=== PATIENT | female | born 1990 | race Caucasian/White ===

== ENCOUNTER 2018-02-04 06:51 | Emergency (ER) | payer OTHER, MEDICAID ==
[2018-02-04 08:30] LABS: BASO % 0.6 % (0.0-1.0); EOS # 0.1 10^3/uL (0.0-0.50); EOS % 1.3 % (0.0-3.0); HEMATOCRIT 38.3 % (36.0-47.0); HEMOGLOBIN 12.4 g/dl (12.0-15.5); IMMATURE GRANULOCYTE % 0.3 % (0-3.0); LYMPH # 2.3 10^3/uL (1.5-6.5); LYMPH % 32.7 % (24.0-44.0); MEAN CORPUSCULAR HEMOGLOBIN 28.4 pg (27.0-33.0); MEAN CORPUSCULAR HGB CONC 32.4 g/dl (32.0-36.5); MEAN CORPUSCULAR VOLUME 87.6 fl (80.0-96.0); MONO # 0.5 10^3/uL (0.0-0.8); MONO % 6.7 % (0.0-5.0); NEUTROPHILS # 4.1 10^3/uL (1.8-7.7); NEUTROPHILS % 58.4 % (36.0-66.0); PLATELET COUNT, AUTOMATED 302 10^3/uL (150-450); RED BLOOD COUNT 4.37 10^6/uL (4.00-5.40); RED CELL DISTRIBUTION WIDTH 13.6 % (11.5-14.5)
[2018-02-04 08:36] LABS: APPEARANCE, URINE HAZY (CLEAR); BACTERIA, URINE AUTO NEGATIVE (NEGATIVE); BILIRUBIN, URINE AUTO NEGATIVE (NEGATIVE); BLOOD, URINE BLOOD 1+ (NEGATIVE); COLOR, URINE YELLOW (YELLOW); GLUCOSE, URINE (UA) AUTO NEGATIVE (NEGATIVE); KETONE, URINE AUTO NEGATIVE (NEGATIVE); LEUKOCYTE ESTERASE, URINE AUTO TRACE (NEGATIVE); MUCUS, URINE SMALL (NEGATIVE); NITRITE, URINE AUTO NEGATIVE (NEGATIVE); PROTEIN, URINE AUTO NEGATIVE (NEGATIVE); RBC, URINE AUTO 1 /HPF (0-3); SPECIFIC GRAVITY URINE AUTO 1.019 (1.002-1.035); SQUAMOUS EPITHELIAL CELL UR AU 2 /HPF (0-6); UROBILINOGEN, URINE AUTO 0.2 mg/dL (0.0-2.0); WBC, URINE AUTO 0 /HPF (0-3)
[2018-02-04 08:59] LABS: ALBUMIN 3.4 GM/DL (3.2-5.2); ALBUMIN/GLOBULIN RATIO 0.79 (1.00-1.93); ALKALINE PHOSPHATASE 92 U/L (45-117); ALT/SGPT 31 U/L (12-78); ANION GAP 9 MEQ/L (8-16); AST/SGOT 18 U/L (7-37); BILIRUBIN,DIRECT < 0.1 MG/DL (0.0-0.2); BILIRUBIN,TOTAL 0.1 MG/DL (0.2-1.0); BLOOD UREA NITROGEN 15 MG/DL (7-18); CALCIUM LEVEL 8.9 MG/DL (8.5-10.1); CARBON DIOXIDE LEVEL 26 MEQ/L (21-32); CHLORIDE LEVEL 106 MEQ/L (98-107); CREATININE FOR GFR 0.88 MG/DL (0.55-1.30); GLOMERULAR FILTRATION RATE > 60.0 (>60); GLUCOSE, FASTING 119 MG/DL (70-100); NT-PRO BNP 14 PG/ML (<125); POTASSIUM SERUM 3.8 MEQ/L (3.5-5.1); SODIUM LEVEL 141 MEQ/L (136-145); TOTAL PROTEIN 7.7 GM/DL (6.4-8.2)
== END 2018-02-04 10:50 | disposition home or self-care (01) ==
LOC: M ED 06:51
DX: R60.0 Localized edema (principal); F41.9 Anxiety disorder, unspecified; G47.00 Insomnia, unspecified; F60.3 Borderline personality disorder; Z79.899 Other long term (current) drug therapy; Z88.7 Allergy status to serum and vaccine; Z88.8 Allergy status to other drugs, medicaments and biological substances
CPT/HCPCS: 71046

== ENCOUNTER 2018-02-26 16:38 | Emergency (ER) | payer OTHER, MEDICAID ==
[2018-02-26] MEDS: NS 1,000 ML IV (19:25)
[2018-02-26 19:34] LABS: BASO % 0.4 % (0.0-1.0); EOS # 0.1 10^3/uL (0.0-0.50); HEMATOCRIT 40.5 % (36.0-47.0); HEMOGLOBIN 13.6 g/dl (12.0-15.5); IMMATURE GRANULOCYTE % 0.3 % (0-3.0); LYMPH # 2.5 10^3/uL (1.5-6.5); LYMPH % 26.6 % (24.0-44.0); MEAN CORPUSCULAR HEMOGLOBIN 27.9 pg (27.0-33.0); MEAN CORPUSCULAR HGB CONC 33.6 g/dl (32.0-36.5); MONO # 0.7 10^3/uL (0.0-0.8); MONO % 7.4 % (0.0-5.0); NEUTROPHILS # 6.1 10^3/uL (1.8-7.7); NEUTROPHILS % 64.3 % (36.0-66.0); PLATELET COUNT, AUTOMATED 343 10^3/uL (150-450); RED BLOOD COUNT 4.88 10^6/uL (4.00-5.40); RED CELL DISTRIBUTION WIDTH 13.6 % (11.5-14.5); WHITE BLOOD COUNT 9.5 10^3/uL (4.0-10.0)
[2018-02-26 19:45] LABS: INR 1.04; PROTHROMBIN TIME 13.7 SECONDS (12.4-14.5)
[2018-02-26 19:46] LABS: PARTIAL THROMBOPLASTIN TIME 32.2 SECONDS (26.8-37.9)
[2018-02-26 19:48] LABS: D-DIMER QUANT 597.2 ng/ml (<500)
[2018-02-26 20:04] LABS: ALBUMIN 3.8 GM/DL (3.2-5.2); ALBUMIN/GLOBULIN RATIO 0.86 (1.00-1.93); ALKALINE PHOSPHATASE 103 U/L (45-117); ALT/SGPT 40 U/L (12-78); ANION GAP 10 MEQ/L (8-16); AST/SGOT 20 U/L (7-37); BILIRUBIN,DIRECT 0.1 MG/DL (0.0-0.2); BILIRUBIN,TOTAL 0.3 MG/DL (0.2-1.0); BLOOD UREA NITROGEN 11 MG/DL (7-18); CALCIUM LEVEL 8.8 MG/DL (8.5-10.1); CARBON DIOXIDE LEVEL 27 MEQ/L (21-32); CHLORIDE LEVEL 102 MEQ/L (98-107); CPK CREATINE PHOSPHOKINASE 166 U/L (26-192); CREATININE FOR GFR 0.91 MG/DL (0.55-1.30); FREE T4 0.92 NG/DL (0.76-1.46); GLOMERULAR FILTRATION RATE > 60.0 (>60); GLUCOSE, FASTING 86 MG/DL (70-100); POTASSIUM SERUM 4.4 MEQ/L (3.5-5.1); SODIUM LEVEL 139 MEQ/L (136-145); TOTAL PROTEIN 8.2 GM/DL (6.4-8.2); TROPONIN I < 0.02 NG/ML (< 0.10)
[2018-02-26 20:09] LABS: CK-MB VALUE MASS 4.8 NG/ML (<3.6); MB/CK RELATIVE INDEX 2.89 (< OR =4); NT-PRO BNP 76 PG/ML (<125)
[2018-02-26 20:31] LABS: CONTROL LINE HCG INT CTR LINE PRESENT; HCG, SERUM QUALITATIVE NEGATIVE (NEGATIVE)
[2018-02-26] MEDS ORDERED: ISOVUE-370 76% 100ML VIAL (Q9967) As Ordered (20:31)
== END 2018-02-26 22:05 | disposition home or self-care (01) ==
LOC: M ED 16:38
DX: R07.89 Other chest pain (principal); R60.0 Localized edema; R06.02 Shortness of breath; R56.9 Unspecified convulsions; Z79.899 Other long term (current) drug therapy; Z88.6 Allergy status to analgesic agent; Z88.7 Allergy status to serum and vaccine
CPT/HCPCS: Q9967

== ENCOUNTER → 2018-05-21 | Outpatient (CLI) | payer OTHER ==
[2018-05-21 13:20] LABS: HEMATOCRIT 34.8 % (36.0-47.0); HEMOGLOBIN 11.3 g/dl (12.0-15.5); MEAN CORPUSCULAR HEMOGLOBIN 28.2 pg (27.0-33.0); MEAN CORPUSCULAR HGB CONC 32.5 g/dl (32.0-36.5); MEAN CORPUSCULAR VOLUME 86.8 fl (80.0-96.0); PLATELET COUNT, AUTOMATED 310 10^3/uL (150-450); RED BLOOD COUNT 4.01 10^6/uL (4.00-5.40); RED CELL DISTRIBUTION WIDTH 14.1 % (11.5-14.5); WHITE BLOOD COUNT 6.7 10^3/uL (4.0-10.0)
[2018-05-21 13:51] LABS: PROLACTIN 12.4 NG/ML
[2018-05-21 15:27] LABS: ESTIMATED AVERAGE GLUCOSE 88 MG/DL (60-110); FREE T4 0.88 NG/DL (0.76-1.46); HEMOGLOBIN A1c 4.7 %
[2018-05-27 00:07] LABS: DEHYDROEPIANDROSTERONE SULFATE 187.2 ug/dL (84.8-378.0); INSULIN FREE 29 uU/mL (.); INSULIN TOTAL2 29 uU/mL (.); TESTOSTERONE FREE (DIRECT) 2.6 pg/mL (0.0-4.2)
== END ==
LOC: M SMT 08:28
DX: N92.6 Irregular menstruation, unspecified (principal)
CPT/HCPCS: 83525

== ENCOUNTER → 2018-05-28 | Outpatient (CLI) | payer OTHER | LOC: M SMT 13:39 | DX: N92.0 Excessive and frequent menstruation with regular cycle (principal) | CPT/HCPCS: 76830 ==

== ENCOUNTER 2018-07-22 17:17 | Emergency (ER) | payer OTHER | END 2018-07-22 19:01 | disposition home or self-care (01) | LOC: M ED 17:17 | DX: L02.412 Cutaneous abscess of left axilla (principal); R56.9 Unspecified convulsions; Z88.6 Allergy status to analgesic agent; Z88.7 Allergy status to serum and vaccine | CPT/HCPCS: 87186 ==

== ENCOUNTER 2018-09-12 17:36 | Emergency (ER) | payer OTHER ==
[~2018-09-12] VITALS: Ht 170.2 cm; Wt 132.0 kg
[~2018-09-12 17:36] MED LIST: ARIP1TAB PO; CITA20TA4; CLEO300C2 PO; HYDR25TAB PO; PROBCAP4 PO
[2018-09-12] MEDS ORDERED: ACETAMINOPHEN 325 MG TAB PO ONE (18:15)
--- NOTE | 2018-09-12 18:35 | REP ---
Clinical: Cough and fever . Comparison: 02/04/2018 . Technique: PA and lateral. Findings: The mediastinum and cardiac silhouette are normal. The lung lawson are clear and without acute consolidation, effusion, or pneumothorax. The skeletal structures are intact and normal. Impression: 1. No acute cardiopulmonary process. Electronically Signed by Luis Felipe Mantilla MD 09/12/2018 06:26 P
[2018-09-12 18:40] LABS: BASO % 0.5 % (0.0-1.0); EOS % 0.2 % (0.0-3.0); HEMATOCRIT 38.2 % (36.0-47.0); HEMOGLOBIN 12.3 g/dl (12.0-15.5); LYMPH # 1.3 10^3/uL (1.5-6.5); LYMPH % 19.8 % (24.0-44.0); MEAN CORPUSCULAR HEMOGLOBIN 25.3 pg (27.0-33.0); MEAN CORPUSCULAR HGB CONC 32.2 g/dl (32.0-36.5); MEAN CORPUSCULAR VOLUME 78.6 fl (80.0-96.0); MONO # 0.6 10^3/uL (0.0-0.8); MONO % 9.2 % (0.0-5.0); NEUTROPHILS # 4.6 10^3/uL (1.8-7.7); NEUTROPHILS % 70.1 % (36.0-66.0); PLATELET COUNT, AUTOMATED 347 10^3/uL (150-450); RED BLOOD COUNT 4.86 10^6/uL (4.00-5.40); WHITE BLOOD COUNT 6.5 10^3/uL (4.0-10.0)
[2018-09-12 18:52] LABS: INR 1.04; PARTIAL THROMBOPLASTIN TIME 29.9 SECONDS (25.4-37.6); PROTHROMBIN TIME 13.7 SECONDS (12.1-14.4)
[2018-09-12 18:55] LABS: D-DIMER QUANT 784.33 ng/ml (<500)
[2018-09-12] MEDS ORDERED: NS 500 ML IV ONE (19:00)
[2018-09-12 19:05] LABS: ALBUMIN 3.6 GM/DL (3.2-5.2); ALT/SGPT 38 U/L (12-78); BILIRUBIN,DIRECT 0.1 MG/DL (0.0-0.2); BILIRUBIN,TOTAL 0.4 MG/DL (0.2-1.0); BLOOD UREA NITROGEN 10 MG/DL (7-18); CALCIUM LEVEL 8.8 MG/DL (8.5-10.1); CARBON DIOXIDE LEVEL 27 MEQ/L (21-32); CHLORIDE LEVEL 105 MEQ/L (98-107); CREATININE FOR GFR 0.93 MG/DL (0.55-1.30); GLOMERULAR FILTRATION RATE > 60.0 (>60); GLUCOSE, FASTING 96 MG/DL (70-100); POTASSIUM SERUM 4.1 MEQ/L (3.5-5.1); SODIUM LEVEL 139 MEQ/L (136-145); TOTAL PROTEIN 7.5 GM/DL (6.4-8.2)
[2018-09-12 19:13] LABS: INFLUENZA A AMPLIFICATION NEGATIVE (NEGATIVE); INFLUENZA B AMPLIFICATION NEGATIVE (NEGATIVE)
[2018-09-12] MEDS ORDERED: ISOVUE-370 76% 100ML VIAL (Q9967) As Ordered ONE (19:16)
--- NOTE | 2018-09-12 19:46 | REP ---
Clinical: Acute chest pain with elevated D-dimer levels. Comparison: 02/26/2018 . Technique: Axial contrast enhanced images from the thoracic inlet to the upper abdomen using 100 ml Isovue 370 intravenous contrast material with coronal and sagittal re-formations. Findings: Satisfactory enhancement of the pulmonary vasculature is achieved but evaluation is somewhat limited due to considerable respiratory motion artifact. No obvious filling defects are identified to suggest pulmonary embolus. Thoracic aorta is normal caliber without aneurysm or dissection. Heart and pericardium are normal. Bilateral lung lawson are well aerated and clear without acute pulmonary parenchymal consolidation or atelectasis. No nodule or mass lesion. No pleural effusion/reaction. No pneumothorax. No adenopathy. Limited upper abdomen demonstrates hepatosteatosis. Impression: No evidence for pulmonary embolus. No acute pleuroparenchymal or mediastinal process. Electronically Signed by Luis Felipe Mantilla MD 09/12/2018 07:37 P
[2018-09-12 19:55] VITALS: BP 125/64
[2018-09-12] MEDS ORDERED: PROAAER10 INH (19:55)
== END 2018-09-12 20:14 | disposition home or self-care (01) ==
LOC: M ED 17:36
DX: J20.9 Acute bronchitis, unspecified (principal); R04.2 Hemoptysis; R56.9 Unspecified convulsions; F60.9 Personality disorder, unspecified; F43.10 Post-traumatic stress disorder, unspecified
CPT/HCPCS: 71046; 71275; 80048; 80076; 85025; 85379; 85610; 85730; 87502; 99284; Q9967

== ENCOUNTER → 2019-04-09 | Outpatient (CLI) | payer OTHER ==
[~2019-04-09] MED LIST changes: +BACT800T5 PO; -CITA20TA4; +CITA20TA6; +METF750T41 PO; +NEOM28.3 TOP; +PROAAER10 INH; +SILV50CR EXT
--- NOTE | 2019-04-09 12:30 | REP ---
Pelvic ultrasound including transabdominal, endovaginal and Doppler ultrasound assessment: Comparison is 05/28/2018. The bladder is adequately distended. The uterus is anteverted and upper normal size measuring 9.2 x 4.8 x 5.3 cm. The myometrium is unremarkable. The endometrium is normal thickness measuring 11 mm. The Cervix Nabothian cysts are incidentally identified. The right ovary is normal size measuring 2.9 x 1.9 x 1.9 cm. The left ovary is normal size measuring 2.7 x 1.7 x 2.1 cm. There are no dominant ovarian masses or cysts. There is vascular flow in both ovaries. The Doppler resistive index of the parenchymal arteries on the right is 0.59 and the left 0.58. There is no free fluid in the pelvis. Impression: Essentially negative pelvic ultrasound. Electronically Signed by Man Loyola MD 04/09/2019 12:21 P
== END ==
LOC: M RAD 10:51
PROVIDERS: ATTEND Advanced Practice Midwife
DX: N92.0 Excessive and frequent menstruation with regular cycle (principal)

== ENCOUNTER 2019-04-19 21:26 | Inpatient (IN) | payer OTHER ==
[~2019-04-19] VITALS: Ht 170.2 cm; Wt 133.8 kg
[2019-04-19] MEDS: HumaLOG INSULIN (NovoLOG) PER UNIT SC SCH (02:55)
[~2019-04-19 21:26] MED LIST changes: -BACT800T5 PO; -METF750T41 PO; -NEOM28.3 TOP; -SILV50CR EXT
[2019-04-19] MEDS ORDERED: MOM 30ML SUSPENSION UDC PO PRN (23:15)
[2019-04-19] MEDS ORDERED: MAALOX 30 ML SUSP *UDC PO PRN (23:15)
[2019-04-20] VITALS: BP 144/82
[2019-04-20] MEDS: ACETAMINOPHEN 500 MG TAB PO PRN ×2 (00:16→12:39)
[2019-04-20] MEDS ORDERED: SILV50CR EXT (00:59)
[2019-04-20] MEDS ORDERED: METF750T41 PO (00:59)
[2019-04-20] MEDS ORDERED: NEOM28.3 TOP (00:59)
[2019-04-20] MEDS ORDERED: BACT800T5 PO (00:59)
--- NOTE | 2019-04-20 01:28 | REPVR ---
EXAM: US Left Non-Vascular Joint or Other Extremity Structure, Limited Upper Extremity EXAM DATE/TIME: 04/20/2019 12:37 AM CLINICAL HISTORY: 28 years old, female; Condition or disease; Abscess; Arm, upper; Left; Additional info: Left axilla rule out abscess TECHNIQUE: Imaging protocol: Left US Non-Vascular Joint or Other Extremity Structure. Limited exam of the upper extremity. COMPARISON: No relevant prior studies available. FINDINGS: Soft tissues: Superficial subcutaneous fluid collection in the left axilla measuring 38 x 11 x 3 mm which may reflects trauma or possibly abscess. There is no internal blood flow although the area around this collection is not particularly hyperemic. IMPRESSION: Superficial fluid collection just beneath the skin in the left axilla measuring 38 x 11 x 3 mm which may reflect seroma or possibly abscess. Electronically signed by: Efrain Diego On 04/20/2019 01:27:38 AM
[2019-04-20] MEDS ORDERED: KETOROLAC 30 MG/ML VIAL (J1885) IV ONE ×2 (02:15→16:45)
[2019-04-20] MEDS ORDERED: DEXTROSE 50% 50 ML SYRINGE IV PRN (02:15)
[2019-04-20] MEDS ORDERED: GLUCAGON FOR INJ 1 MG VIAL (J1610) SC PRN (02:15)
[2019-04-20] MEDS ORDERED: GLUCOSE 4 GM CHEW TABLET PO PRN (02:15)
--- NOTE | 2019-04-20 02:41 | HPEPDOC ---
General Date of Admission Apr 19, 2019 at 23:55 Date of Service: Apr 19, 2019 Chief Complaint The patient is a 28-year-old female admitted with a reason for visit of Axilla Infection. Source: Patient, RN/MD, Old records Exam Limitations: No limitations Severity: Moderate History of Present Illness 28 year old female with PMH of epilepsy, PCOS, Morbid obesity, acid reflux. MAJOR DEPRESSIVE DISORDER , COMPLEX PTSD, PSEUDO SEIZURES, HYPERTENSION, ON CBD OIL transferred from [place] as there was no surgical coverage. Patient has been having intermittent axillary painful swellings for the past 8 months. It would come out swelling up rupture drain she would get a course of antibiotics it would get suppressed but never go away completely this time it came up about 1 week ago she was prescribed bactrim which she had finished one course and was started on a second course however has not been improving . It had opened up again today and started draining s she went to the ED and was transferred here for surgical evaluation. Patient complains of dull throbbing pain about 8/10 in intensity in the left axilla extending down and to the back with swelling and intermittent drainage from 2 openings, Home Medications Scheduled Metformin HCl (Metformin HCl ER) 750 Mg Tab.er.24h, 750 MG PO BID, (Reported) Neomycin/Bacitracin/Polymyxinb (Neosporin Ointment) 28.3 Gm Oint...g., 1 DOSE TOP TID, (Reported) LEFT ARMPIT Silver Sulfadiazine (Ssd) 50 Gm Cream..g., 1 DOSE EXT TID, (Reported) LEFT ARMPIT Sulfamethoxazole/Trimethoprim (Bactrim Ds Tablet) 1 Each Tablet, 1 TAB PO BID, (Reported) Allergies Coded Allergies: Pertussis Vaccines (Verified Allergy, Severe, throat swelling, 04/19/19) ibuprofen (Verified Adverse Reaction, Mild, vomiting, 04/19/19) Past Medical History Medical History epilepsy, PCOS, Morbid obesity, acid reflux. MAJOR DEPRESSIVE DISORDER COMPLEX PTSD PSEUDO SEIZURES HYPERTENSION ON CBD OIL Surgical History lymph node biopsy Family History Significant Family History: Cancer (maternal aunt brain cnacer, great grandmother breast cancer), Hypertension (mother, grandmother), Other (stroke in grandmother) Social History * Smoker: non-smoker Alcohol: Denies Drugs: marijuana A-FIB/CHADSVASC A-FIB History Current/History of A-Fib/PAF?: No Review of Systems Constitutional: Denies: Chills, Fever, Night Sweats Eyes: Denies: Pain, Vision change ENT: Denies: Head Aches, Ear Pain, Dysphagia Skin: Reports: Lesions (left axilla abscess), Breakdown (drainage from sandeep deep seated abscess) Pulmonary: Denies: Dyspnea, Cough Cardiovascular: Denies: Chest Pain, Palpitations, Orthopnea, Paroxysmal Noc. Dyspnea, Lt Headedness Gastrointestinal: Reports: Nausea; Denies: Vomiting, Abdominal Pain, Diarrhea, Constipation, Melena, Hematochezia, Other Symptoms Genitourinary: Denies: Dysuria, Frequency, Incontinence, Retention Hematologic: Denies: Bruising, Bleeding Excessively Musculoskeletal: Denies: Neck Pain, Back Pain, Joint Pain, Muscle Pain, Spasms Neurological: Denies: Weakness, Numbness, Change in speech, Confusion Physical Examination General Exam: Positive: Alert, Cooperative, No Acute Distress Eye Exam: Positive: PERRLA, Conjunctiva & lids normal, EOMI; Negative: Sclera icteric ENT Exam: Positive: Atraumatic, Mucous membr. moist/pink, Pharynx Normal Neck Exam: Positive: Supple; Negative: JVD, thyromegaly Chest Exam: Positive: Clear to auscultation, Normal air movement Heart Exam: Positive: Rate Normal, Regular Rhythm, Normal S1, Normal S2; Negative: Murmurs, Rubs Abdomen Exam: Positive: Normal bowel sounds, Soft; Negative: Tenderness, Hepatospenomegaly Extremity Exam: Positive: Normal pulses; Negative: Clubbing, Cyanosis, Edema Skin Exam: Positive: Lesion (in eh left axilla 2 distint open areas which was draining before), Other skin issue (tender in the axilla with deep seated swelling ) Neuro Exam: Positive: Normal Gait, Normal Speech, Cranial Nerves 3-12 NL, Re flexes 2+ Psych Exam: Positive: Memory Intact, Oriented x 3 Vital Signs Vital Signs Date Time Temp Pulse Resp B/P (MAP) Pulse Ox O2 Delivery O2 Flow Rate FiO2 04/20/19 00:00 97.8 78 18 144/82 (450) 97 Assessment/Plan 28 year old female with PMH of epilepsy, PCOS, Morbid obesity, acid reflux. MAJOR DEPRESSIVE DISORDER , COMPLEX PTSD, PSEUDO SEIZURES, HYPERTENSION, ON CBD OIL transferred from [place] as there was no surgical coverage. Patient has been having intermittent axillary painful swellings for the past 8 months. It would come out swelling up rupture drain she would get a course of antibiotics it would get suppressed but never go away completely this time it came up about 1 week ago she was prescribed bactrim which she had finished one course and was started on a second course however has not been improving . It had opened up again today and started draining s she went to the ED and was transferred here for surgical evaluation. Epilepsy Vs psuedo seizures takes CBD oil last attack more than year ago. PCOS on metformin will hold here Morbid obesity, acid reflux PPI MAJOR DEPRESSIVE DISORDER/ PTSD no issues now HYPERTENSION not on any meds\ will monitor Plan / VTE VTE Prophylaxis Ordered?: Yes OLGA LIDIA HAWKINS MD Apr 20, 2019 02:41
[2019-04-20] MEDS ORDERED: VANCOMYCIN HCL 1,000 MG, VIAL MATE ADAPTER 1 EACH in D5W 250 ML IV ONE ×2 (03:00→04:30)
[2019-04-20 03:14] LABS: BASO % 0.4 % (0.0-1.0); EOS # 0.1 10^3/uL (0.0-0.50); EOS % 0.8 % (0.0-3.0); HEMATOCRIT 35.3 % (36.0-47.0); HEMOGLOBIN 11.6 g/dl (12.0-15.5); LYMPH # 3.3 10^3/uL (1.5-6.5); LYMPH % 41.7 % (24.0-44.0); MEAN CORPUSCULAR HEMOGLOBIN 27.2 pg (27.0-33.0); MEAN CORPUSCULAR HGB CONC 32.9 g/dl (32.0-36.5); MEAN CORPUSCULAR VOLUME 82.9 fl (80.0-96.0); MONO # 0.5 10^3/uL (0.0-0.8); MONO % 6.3 % (0.0-5.0); NEUTROPHILS # 4.1 10^3/uL (1.8-7.7); NEUTROPHILS % 50.7 % (36.0-66.0); PLATELET COUNT, AUTOMATED 275 10^3/uL (150-450); RED BLOOD COUNT 4.26 10^6/uL (4.00-5.40)
[2019-04-20 03:35] LABS: BLOOD UREA NITROGEN 11 MG/DL (7-18); CALCIUM LEVEL 8.3 MG/DL (8.5-10.1); CARBON DIOXIDE LEVEL 29 MEQ/L (21-32); CHLORIDE LEVEL 108 MEQ/L (98-107); CREATININE FOR GFR 0.96 MG/DL (0.55-1.30); GLOMERULAR FILTRATION RATE > 60.0 (>60); GLUCOSE, FASTING 116 MG/DL (70-100); POTASSIUM SERUM 4.1 MEQ/L (3.5-5.1); SODIUM LEVEL 141 MEQ/L (136-145)
--- NOTE | 2019-04-20 04:51 | PHACANCOPD ---
PHARMACY VANCOMYCIN DOSING Pt Demographics Demographics Patient Age:28 , Weight:133.800 , Gender: female Adjusted Body Weight Date: 04/20/19, Adjusted Body Weight: [90.5] Kg Vancomycin Vancomycin indication: PERSISTANT AXILLA INFECTION Vancomycin Target Ranges: 15-20 mcg/ml Vancomycin Load Y/N: Yes Load Dose Date Time Vancomycin Load Dose: 2GM Date: 04/20 Time: 3-5AM Vancomycin Dose Date: 04/20/19. Current Vancomycin Dose: [1 GM Q8H] Intermittent Dosing?: No Labs Labs Laboratory Tests 04/20/19 03:08 Red Blood Count 4.26, Mean Corpuscular Volume 82.9, Mean Corpuscular Hemoglobin 27.2, Mean Corpuscular Hemoglobin Concent 32.9, Red Cell Distribution Width 15.1 H, Neutrophils (%) (Auto) 50.7, Lymphocytes (%) (Auto) 41.7, Monocytes (%) (Au to) 6.3 H, Eosinophils (%) (Auto) 0.8, Basophils (%) (Auto) 0.4, Neutrophils # (Auto) 4.1, Lymphocytes # (Auto) 3.3, Monocytes # (Auto) 0.5, Eosinophils # (Auto) 0.1, Basophils # (Auto) 0.0, Calcium Level 8.3 L Micro Microbiology 04/20/19 Blood Culture, Received Pending 04/20/19 Blood Culture, Received Pending Creatinine Clearance Date:04/20/19. Creatinine Clearance: [>100]CALCULATED. Assessment and Plan Maintaining Current Dose?: Yes Reason for dose change: No Dose Change Pharmacist Note Pharmacist Note Date: 04/20/19. Pharmacist note:28 YOF TRANSFERRED [facility]OTHER FACILITY W/RECURRENT AXILLA INFECTION,Vanco trough goal=15-30, RL=890.8kg(ABW=90.5 kg),SCR=0.96,CRCL>100 calculated ,ALLERGIES:Pertussis vaccine.Vancomycin 2 gram load administered ,then will begin regimen of 1 gram IV Q8H @1100. First trough is acheduled for 04/21@0200(prior to the 4th dose. Will continue to follow labs and adjust Vanco dose as needed IVONNE AGUILAR PHARMACY Apr 20, 2019 04:51
[2019-04-20] MEDS: PANTOPRAZOLE 40MG TAB (PROTONIX) PO SCH (05:24)
[2019-04-20 06:00] VITALS: BP 113/62
[2019-04-20] MEDS ORDERED: KETOROLAC 30 MG/ML VIAL (J1885) IV PRN (08:00)
[2019-04-20] MEDS: DOCUSATE SODIUM 100 MG CAP PO SCH ×2 (08:29→20:18)
[2019-04-20] MEDS: HumaLOG INSULIN (NovoLOG) PER UNIT SC SCH ×4 (08:29→20:48)
[2019-04-20] MEDS: VANCOMYCIN HCL 1,000 MG, VIAL MATE ADAPTER 1 EACH in D5W 250 ML IV SCH ×2 (11:14→18:50)
[2019-04-20 14:00] VITALS: BP 127/80
--- NOTE | 2019-04-20 15:16 | IPNPDOC ---
Date Seen The patient was seen on 04/20/19. Progress Note SUBJECTIVE: Patient is a 28-year-old female with a past medical history of PCOS, epilepsy, pseudoseizures, obesity, hypertension, complex PTSD, and acid reflux presented to the ER for an infection in her left axilla. Ms. Robertson was transferred from [place] as a result of no surgical coverage. She has been having intermittent painful axillary swellings for the past 8 months. Her axilla began swelling, ruptured, and began draining. She has gotten antibiotics on and off over the last 8 months that would suppress but not completely heal the draining infection in her axilla. She was prescribed 2 courses of Bactrim 1 week ago with no improvement. The infection ruptured yesterday and started draining which led her to present to the emergency room. Ms. Robertson states that the pain is dull, throbbing, and rates it as an 8/10. The pain radiates inferoposteriorly to the left axilla. Her infection had two draining openings in the ER. Patient was examined at bedside. She is in a pleasant mood and is cooperative. She expresses her frustration at having this abscess for the last 8 months and would like this issue to be resolved by the end of her hospital stay. She states that her abscess has not been draining since her admission. In the last week she has noticed yellow pus and blood draining from the two openings. The drainage is noted as having a pungent smell. She admits to having night sweats recently but denies having fevers or chills. OBJECTIVE PHYSICAL EXAMINATION: VITAL SIGNS: Please see below. GENERAL: 28-year-old female lying in bed, she is in no acute distress. She is alert to her surroundings and cooperative HEENT: NC AT, neck is supple CARDIOVASCULAR: regular rate and rhythm, normal S1S2. No murmurs, rubs, or gallops appreciated RESPIRATORY: Clear to auscultation bilaterally. No wheezes, rhonchi, or rales noted. ABDOMINAL: soft, nontender to palpation, normal bowel sounds EXTREMITIES: left axilla abscess noted, two drainage openings noted. left axilla tender to palpation. No cyanosis or rashes noted. NEUROLOGICAL: no focal deficits noted PSYCHOLOGICAL: normal affect LABORATORY DATA, IMAGING STUDIES, MICROBIOLOGY: Please see below. 1. Extremity US 04/20/19: Superficial fluid collection just beneath the skin in the left axilla measuring 38 x 11 x 3 mm which may reflect seroma or possibly abscess. 2. Abscess drainage US 04/20/19: DVT prophylaxis ordered?: Yes, SCDs and TEDs ASSESSMENT AND PLAN: This is a 28-year-old white female with a past medical history of PCOS, epilepsy, pseudoseizures, obesity, hypertension, complex PTSD, and acid reflux PROBLEMS: 1. Hidradenitis Suppurativa -Extremity US showed superficial fluid collection just beneath skin in left axilla 04/20/19 in the am -c/w acetaminophen and Toradol prn pain -c/w vancomycin, will discharge with doxycycline -patient had ultrasound guided abscess drainage 04/20/19 in the pm -blood cultures pending 2. Epilepsy 3. PCOS -c/w sliding scale insulin 4. Obesity 5. Acid reflux -c/w pantoprazole 6. Major depressive disorder DISPOSITION: Patient is stable and prognosis is good. She had US guided abscess drainage this afternoon; she is encouraged to keep left axilla clean and dry. We appreciate Interventional Radiology for their help. Hoping to discharge patient in the next 24-48 hours. I saw and evaluated the patient. I agree with the findings and plan of care as documented in the above note VS, I&O, 24H, Fishbone Vital Signs/I&O Vital Signs Date Time Temp Pulse Resp B/P (MAP) Pulse Ox O2 Delivery O2 Flow Rate FiO2 04/20/19 14:00 98.5 81 18 127/80 (96) 98 I&O- Last 24 Hours up to 6 AM 04/20/19 06:00 Intake Total 0 ml Output Total 300 ml Balance -300 ml Laboratory Data 24H LABS Laboratory Tests 2 04/20/19 02:55: Bedside Glucose (Misc Panel) 96 04/20/19 03:08: Immature Granulocyte % (Auto) 0.1, White Blood Count 8.0, Red Blood Count 4.26, Hemoglobin 11.6L, Hematocrit 35.3L, Mean Corpuscular Volume 82.9, Mean Corpuscular Hemoglobin 27.2, Mean Corpuscular Hemoglobin Concent 32.9, Red Cell Distribution Width 15.1H, Platelet Count 275, Neutrophils (%) (Auto) 50.7, Lymp hocytes (%) (Auto) 41.7, Monocytes (%) (Auto) 6.3H, Eosinophils (%) (Auto) 0.8, Basophils (%) (Auto) 0.4, Neutrophils # (Auto) 4.1, Lymphocytes # (Auto) 3.3, Monocytes # (Auto) 0.5, Eosinophils # (Auto) 0.1, Basophils # (Auto) 0.0, Nucleated Red Blood Cells % (auto) 0.0, Anion Gap 4L, Glomerular Filtration Rate > 60.0, Blood Urea Nitrogen 11, Creatinine 0.96, Sodium Level 141, Potassium Level 4.1, Chloride Level 108H, Carbon Dioxide Level 29, Calcium Level 8.3L 04/20/19 04:59: Bedside Glucose (Misc Panel) 145H 04/20/19 11:21: Bedside Glucose (Misc Panel) 122H CBC/BMP Laboratory Tests 04/20/19 03:08 Red Blood Count 4.26, Mean Corpuscular Volume 82.9, Mean Corpuscular Hemoglobin 27.2, Mean Corpuscular Hemoglobin Concent 32.9, Red Cell Distribution Width 15.1 H, Neutrophils (%) (Auto) 50.7, Lymphocytes (%) (Auto) 41.7, Monocytes (%) (Auto) 6.3 H, Eosinophils (%) (Auto) 0.8, Basophils (%) (Auto) 0.4, Neutrophils # (Auto) 4.1, Lymphocytes # (Auto) 3.3, Monocytes # (Auto) 0.5, Eosinophils # (Auto) 0.1, Basophils # (Auto) 0.0, Calcium Level 8.3 L Microbiology Microbiology 04/20/19 Blood Culture, Received Pending 04/20/19 Blood Culture, Received Pending MARITZA KESSLER [facility] Apr 20, 2019 15:16 PRASANNA WOLFE MD Apr 20, 2019 17:03
[2019-04-20 22:00] VITALS: BP 123/73
[2019-04-20] MEDS: KETOROLAC 30 MG/ML VIAL (J1885) IV PRN (23:01)
[2019-04-21] MEDS: VANCOMYCIN HCL 1,000 MG, VIAL MATE ADAPTER 1 EACH in D5W 250 ML IV SCH (03:16)
--- NOTE | 2019-04-21 03:31 | PHACANCOPD ---
PHARMACY VANCOMYCIN DOSING Pt Demographics Demographics Patient Age:28 , Weight:133.800 , Gender: female Adjusted Body Weight Date: 04/20/19, Adjusted Body Weight: [90.5] Kg Vancomycin Vancomycin indication: PERSISTANT AXILLA INFECTION Vancomycin Target Ranges: 15-20 mcg/ml Vancomycin Load Y/N: Yes Load Dose Date Time Vancomycin Load Dose: 2GM Date: 04/20 Time: 3-5AM Vancomycin Dose Date: 04/20/19. Current Vancomycin Dose: [1250MG Q8H] Intermittent Dosing?: No Labs Micro Microbiology 04/20/19 Blood Culture - Preliminary, Resulted No growth after 24 hours . All specim... 04/20/19 Blood Culture - Preliminary, Resulted No growth after 24 hours . All specim... Creatinine Clearance Date:04/20/19. Creatinine Clearance: [>100]CALCULATED. Assessment and Plan Maintaining Current Dose?: No Reason for dose change: Trough too low Pharmacist Note Pharmacist Note Date: 04/21/19. Pharmacist note:Vancomycin trough drawn this morning@1:47 reported as 12.5(goal=15-20). Will adjust Vancomycin dose to 1250mg IV [id number] to begin this morning with the 10am dose.-Will continue to monitor labs and adjust Vancomycin dose as necessary Date: 04/20/19. Pharmacist note:28 YOF TRANSFERRED [facility]AC[facility] W/RECURRENT AXILLA INFECTION,Vanco trough goal=15-30, HK=502.8kg(ABW=90.5 kg),SCR=0.96,CRCL>100 calculated ,ALLERGIES:Pertussis vaccine.Vancomycin 2 gram load administered ,then will begin regimen of 1 gram IV Q8H @1100. First trough is acheduled for 04/21@0200(prior to the 4th dose. Will continue to follow labs and adjust Vanco dose as needed IVONNE AGUILAR PHARMACY Apr 21, 2019 03:31
[2019-04-21] MEDS: PANTOPRAZOLE 40MG TAB (PROTONIX) PO SCH (05:37)
[2019-04-21 06:00] VITALS: BP 121/72
--- NOTE | 2019-04-21 07:26 | REP ---
ULTRASOUND LEFT AXILLA: Real-time sonographic evaluation of left axilla was performed in a subcutaneous location there is an elongated hypoechoic areas which measures 4.0 x 0.5 x 1.1 cm. This is at an areas of swelling and redness. There are diffuse internal echoes . This appears to represents an elongated area of subcutaneous edema and inflammation with no significant drainable fluid collection. There is no adjacent hyperemia with duplex Doppler evaluation. There appears to be an associated sinus tract communicating with the skin. Electronically Signed by Man Dueñas MD 04/22/2019 12:27 A
[2019-04-21] MEDS: HumaLOG INSULIN (NovoLOG) PER UNIT SC SCH (07:30)
[2019-04-21] MEDS ORDERED: SM A10CA PO (07:35)
[2019-04-21] MEDS ORDERED: DOXY-350 PO (07:35)
[2019-04-21] MEDS: DOCUSATE SODIUM 100 MG CAP PO SCH (09:00)
[2019-04-21] MEDS: KETOROLAC 30 MG/ML VIAL (J1885) IV PRN (09:00)
[2019-04-21] MEDS ORDERED: VANCOMYCIN HCL 750 MG, VIAL MATE ADAPTER 1 EACH in D5W 250 ML IV SCH (10:00)
[2019-04-21] MEDS ORDERED: VANCOMYCIN HCL 500 MG in D5W MINI-BAG PLUS 100 ML IV SCH (11:00)
--- NOTE | 2019-04-21 13:18 | DS.PDOC ---
Discharge Summary General Date of Admission Apr 19, 2019 at 23:55 Date of Discharge April 21, 2019 Attending Physician: PRASANNA WOLFE MD Discharge Summary PROCEDURES PERFORMED DURING STAY: None ADMITTING DIAGNOSES: 1. Left axilla infection 2. Epilepsy 3. PCOS 4. Morbid obesity 5. Hypertension 6. Acid reflux 7. Major depressive disorder DISCHARGE DIAGNOSES: 1. Hidradenitis Suppurativa 2. Epilepsy 3. PCOS 4. Morbid obesity 5. Hypertension 6. Acid reflux 7. Major depressive disorder COMPLICATIONS/CHIEF COMPLAINT: Axilla Infection HISTORY OF PRESENT ILLNESS: Patient is a 28-year-old female with a past medical history of PCOS, epilepsy, pseudoseizures, obesity, hypertension, complex PTSD, and acid reflux presented to the ER for an infection in her left axilla. Ms. Robertson was transferred from [place] as a result of no surgical coverage. She has been having intermittent painful axillary swellings for the past 8 months. Her axilla began swelling, ruptured, and began draining. She has gotten antibiotics on and off over the last 8 months that would suppress but not completely heal the draining infection in her axilla. She was prescribed 2 courses of Bactrim 1 week ago with no improvement. The infection ruptured yesterday and started draining which led her to present to the emergency room. Ms. Robertson states that the pain is dull, throbbing, and rates it as an 8/10. The pain radiates inferoposteriorly to the left axilla. Her infection had two draining openings in the ER. HOSPITAL COURSE: Patient had an extremity ultrasound that showed elongated area of subcutaneous edema and inflammation with no significant drainable fluid collection. The axilla infection was treated with vancomycin. Her venous blood cultures were negative for growth and patient continued to be afebrile. She is being discharged with oral doxycycline and is recommended to follow up with her PCP in 7-10 days. DISCHARGE MEDICATIONS: Please see below. ALLERGIES: Please see below. PHYSICAL EXAMINATION ON DISCHARGE: VITAL SIGNS: Please see below. GENERAL: 28-year-old female lying in bed, she is in no acute distress. She is alert to her surroundings and cooperative HEENT: NC AT, neck is supple CARDIOVASCULAR: regular rate and rhythm, normal S1S2. No murmurs, rubs, or gallops appreciated RESPIRATORY: Clear to auscultation bilaterally. No wheezes, rhonchi, or rales noted. ABDOMINAL: soft, nontender to palpation, normal bowel sounds EXTREMITIES: left axilla abscess noted, two drainage openings noted. left axilla tender to palpation. No cyanosis or rashes noted. NEUROLOGICAL: no focal deficits noted PSYCHOLOGICAL: normal affect LABORATORY DATA: Please see below. IMAGIN. Extremity US 04/20/19: Superficial fluid collection just beneath the skin in the left axilla measuring 38 x 11 x 3 mm which may reflect seroma or possibly abscess. 2. Extremity US 04/20/19: Real-time sonographic evaluation of left axilla was performed in a subcutaneous location there is an elongated hypoechoic areas which measures 4.0 x 0.5 x 1.1 cm. This is at an areas of swelling and redness. There are diffuse internal echoes. This appears to represents an elongated area of subcutaneous edema and inflammation with no significant drainable fluid collection. There is no adjacent hyperemia with duplex Doppler evaluation. There appears to be an associated sinus tract communicating with the skin. PROGNOSIS: Good ACTIVITY: As tolerated DIET: Regular diet DISPOSITION: Patient being discharged home, Self-Care. DISCHARGE INSTRUCTIONS: 1. Return to the emergency room in the case of an emergency ITEMS TO FOLLOWUP ON ON OUTPATIENT: 1. Follow up with PCP in 7-10 days DISCHARGE CONDITION: Stable I saw and evaluated the patient. I agree with the findings and plan of care as documented in the documenters note. I spent 45 minutes coordinating this patient's discharge. Vital Signs/I&Os Vital Signs Date Time Temp Pulse Resp B/P (MAP) Pulse Ox O2 Delivery O2 Flow Rate FiO2 04/21/19 06:00 97.7 73 14 121/72 (88) 96 I&O- Last 24 Hours up to 6 AM0 04/21/19 05:59 Intake Total 570 ml Output Total 400 ml Balance 170 ml Laboratory Data Labs 24H Laboratory Tests 2 04/20/19 16:51: Bedside Glucose (Misc Panel) 122H 04/20/19 20:39: Bedside Glucose (Misc Panel) 106H 04/21/19 01:47: Vancomycin Level Trough 12.5 04/21/19 06:38: Bedside Glucose (Misc Panel) 93 FSBS Laboratory Tests Test 04/20/19 16:51 04/20/19 20:39 04/21/19 06:38 Range/Units Bedside Glucose (Misc Panel) 122 106 93 70-105 MG/DL Microbiology Microbiology 04/20/19 Blood Culture - Preliminary, Resulted No growth after 24 hours . All specim... 04/20/19 Blood Culture - Preliminary, Resulted No growth after 24 hours . All specim... Discharge Medications Scheduled Doxycycline Monohydrate (Doxycycline) 100 Mg Capsule, 1 CAP PO BID Lactobacillus Acidophilus (Acidophilus) 1 Each Capsule, 1 CAP PO DAILY Metformin HCl (Metformin HCl ER) 750 Mg Tab.er.24h, 750 MG PO BID, (Reported) Allergies Coded Allergies: Pertussis Vaccines (Verified Allergy, Severe, throat swelling, 04/19/19) ibuprofen (Verified Adverse Reaction, Mild, vomiting, 04/19/19) MARITZA KESSLER S-3 Apr 21, 2019 13:18 PRASANNA WOLFE MD Apr 23, 2019 11:51
== END 2019-04-21 10:25 | disposition home or self-care (01) | DRG 385 ==
LOC: M MS5PR 23:55
PROVIDERS: ADMIT Internal Medicine Nephrology; ATTEND Internal Medicine
DX: L73.2 Hidradenitis suppurativa (principal); Z68.42 Body mass index [BMI] 45.0-49.9, adult; I10 Essential (primary) hypertension; E66.01 Morbid (severe) obesity due to excess calories; E28.2 Polycystic ovarian syndrome; G40.909 Epilepsy, unspecified, not intractable, without status epilepticus; K21.9 Gastro-esophageal reflux disease without esophagitis; F32.9 Major depressive disorder, single episode, unspecified

== ENCOUNTER 2019-04-25 02:30 | Emergency (ER) | payer OTHER ==
[~2019-04-25] VITALS: Ht 170.2 cm; Wt 133.6 kg
[~2019-04-25 02:30] MED LIST changes: +BACT800T5 PO; +DOXY-350 PO; +METF750T41 PO; +NEOM28.3 TOP; +SILV50CR EXT; +SM A10CA PO
[2019-04-25] MEDS ORDERED: RISATAB3 (02:39)
[2019-04-25] MEDS ORDERED: METF750T (02:39)
[2019-04-25] MEDS ORDERED: DOXY100C37 (02:39)
[2019-04-25] MEDS ORDERED: HYDROMORPHONE HCL 0.5 MG/ 0.5 ML SYRINGE (J1170 PER 1) IM ONE (03:00)
--- NOTE | 2019-04-25 04:31 | REPVR ---
EXAM: US Left Non-Vascular Joint or Other Extremity Structure, Limited Upper Extremity EXAM DATE/TIME: 04/25/2019 3:12 AM CLINICAL HISTORY: 28 years old, female; Pain; Upper arm; Left; Additional info: Eval L axilla for abscess TECHNIQUE: Imaging protocol: Left US Non-Vascular Joint or Other Extremity Structure. Limited exam of the upper extremity. COMPARISON: US EXTREMITY NON VASCUL LIMITED LEFT 04/20/2019 12:33 AM FINDINGS: Limitations: Examination was limited due to patient's pain. Soft tissues: Imaging of the left axilla was performed. There is a small, very superficial collection measuring approximately 1.9 x 0.5 cm. No transverse images of the collection were submitted. This appears smaller than on the prior exam when it measured 3.8 x 1.1 x 0.3 cm. No communication to a deeper collection is identified. IMPRESSION: Very superficial small collection in the left axilla, decreased in size from the prior exam. Findings were discussed with SAI ZAPATA at 04/25/2019 4:26 AM EDT. Electronically signed by: Leisa Marrero On 04/25/2019 04:31:02 AM
[2019-04-25 04:47] VITALS: BP 144/64
== END 2019-04-25 04:47 | disposition home or self-care (01) ==
LOC: M ED 02:30
DX: L73.2 Hidradenitis suppurativa (principal); G40.909 Epilepsy, unspecified, not intractable, without status epilepticus; K21.9 Gastro-esophageal reflux disease without esophagitis; F32.9 Major depressive disorder, single episode, unspecified; Z79.899 Other long term (current) drug therapy; Z88.7 Allergy status to serum and vaccine; Z88.6 Allergy status to analgesic agent
CPT/HCPCS: 76882; 96372; 99283; J1170

== ENCOUNTER → 2019-05-28 | Outpatient (CLI) | payer OTHER ==
[~2019-05-28] MED LIST changes: +DOXY100C37; +METF750T36; +RISATAB3
[2019-05-28 16:17] LABS: HEMOGLOBIN A1c 5.5 %
[2019-05-28 16:34] LABS: ALBUMIN 3.6 GM/DL (3.2-5.2); ALT/SGPT 42 U/L (12-78); BILIRUBIN,TOTAL 0.3 MG/DL (0.2-1.0); BLOOD UREA NITROGEN 10 MG/DL (7-18); CALCIUM LEVEL 9.4 MG/DL (8.5-10.1); CARBON DIOXIDE LEVEL 26 MEQ/L (21-32); CHLORIDE LEVEL 106 MEQ/L (98-107); CHOLESTEROL LEVEL 131 MG/DL (<200); CHOLESTEROL RISK RATIO 3.638 (<5); CREATININE FOR GFR 0.91 MG/DL (0.55-1.30); FREE T4 0.93 NG/DL (0.76-1.46); GLOMERULAR FILTRATION RATE > 60.0 (>60); GLUCOSE, FASTING 89 MG/DL (70-100); HDL CHOLESTEROL 36 MG/DL (>40); LDL CHOLESTEROL 63 MG/DL (<100); NON-HDL-C 95 MG/DL; POTASSIUM SERUM 4.6 MEQ/L (3.5-5.1); SODIUM LEVEL 140 MEQ/L (136-145); TOTAL PROTEIN 7.3 GM/DL (6.4-8.2); TRIGLYCERIDES LEVEL 161 MG/DL (<150)
== END ==
LOC: M LAB 15:36
PROVIDERS: ATTEND Internal Medicine
DX: R10.11 Right upper quadrant pain (principal); Z68.42 Body mass index [BMI] 45.0-49.9, adult

== ENCOUNTER → 2019-05-28 | Outpatient (REF) | payer OTHER | LOC: M SFHCPLAZ 13:44 | DX: R10.11 Right upper quadrant pain (principal); Z68.42 Body mass index [BMI] 45.0-49.9, adult; Z53.9 Procedure and treatment not carried out, unspecified reason ==

== ENCOUNTER → 2019-06-11 | Outpatient (CLI) | payer OTHER ==
[~2019-06-11] MED LIST changes: +HYDR-4571 PO; +KETO10TAB PO
--- NOTE | 2019-06-11 07:28 | REP ---
Clinical: Right upper quadrant pain. Technique: Real time silva scale ultrasound examination using curved array transducer. Findings: Liver is mildly hyperechoic suggesting fatty infiltration. No focal hepatic lesion identified. The pancreas is incompletely evaluated but visualized portions appear normal. Gallbladder demonstrates gallstones without wall thickening or pericholecystic fluid. No biliary ductal dilatation is appreciated and the common bile duct measures 4.1 mm diameter. Right kidney is normal in reniform shape without hydronephrosis and measures 12.1 x 5.7 x 4.6 cm. No ascites. Impression: 1. Fatty liver. 2. Cholelithiasis. Electronically Signed by Luis Felipe Mantilla MD 06/11/2019 07:20 A
== END ==
LOC: M RAD 06:28
PROVIDERS: ATTEND Internal Medicine
DX: R10.11 Right upper quadrant pain (principal); K76.0 Fatty (change of) liver, not elsewhere classified; K80.20 Calculus of gallbladder without cholecystitis without obstruction

== ENCOUNTER → 2019-06-18 | Outpatient (CLI) | payer OTHER ==
[~2019-06-18] MED LIST changes: -HYDR-4571 PO; -KETO10TAB PO
[2019-06-18 13:48] LABS: HEMATOCRIT 38.8 % (36.0-47.0); HEMOGLOBIN 12.9 g/dl (12.0-15.5); MEAN CORPUSCULAR HEMOGLOBIN 27.3 pg (27.0-33.0); MEAN CORPUSCULAR HGB CONC 33.2 g/dl (32.0-36.5); PLATELET COUNT, AUTOMATED 330 10^3/uL (150-450); RED BLOOD COUNT 4.73 10^6/uL (4.00-5.40); WHITE BLOOD COUNT 7.2 10^3/uL (4.0-10.0)
[2019-06-18 14:14] LABS: FREE T4 0.99 NG/DL (0.76-1.46)
[2019-06-25 00:06] LABS: DEHYDROEPIANDROSTERONE SULFATE 178.9 ug/dL (84.8-378.0); INSULIN FREE 23 uU/mL (.); INSULIN TOTAL2 23 uU/mL (.); TESTOSTERONE FREE (DIRECT) 4.2 pg/mL (0.0-4.2)
== END ==
LOC: M LAB 12:53
PROVIDERS: ATTEND Advanced Practice Midwife
DX: N92.0 Excessive and frequent menstruation with regular cycle (principal)

== ENCOUNTER 2019-08-30 06:27 | Inpatient (IN) | payer OTHER ==
[~2019-08-30] VITALS: Ht 170.2 cm; Wt 131.4 kg
[2019-08-30] MEDS ORDERED: ONDANSETRON 4MG/2ML VIAL (J2405) IV ONE (07:00)
[2019-08-30] MEDS ORDERED: NS 1,000 ML IV ONE (07:00)
[2019-08-30 07:27] LABS: BASO % 0.5 % (0.0-1.0); EOS # 0.1 10^3/uL (0.0-0.5); EOS % 1.8 % (0.0-3.0); HEMATOCRIT 39.6 % (36.0-47.0); HEMOGLOBIN 13.2 g/dl (12.0-15.5); LYMPH % 37.7 % (24.0-44.0); MEAN CORPUSCULAR HEMOGLOBIN 27.9 pg (27.0-33.0); MEAN CORPUSCULAR HGB CONC 33.3 g/dl (32.0-36.5); MEAN CORPUSCULAR VOLUME 83.7 fl (80.0-96.0); MONO # 0.6 10^3/uL (0.0-0.8); MONO % 7.4 % (0.0-5.0); NEUTROPHILS # 4.2 10^3/uL (1.5-8.5); NEUTROPHILS % 52.3 % (36.0-66.0); PLATELET COUNT, AUTOMATED 328 10^3/uL (150-450); RED BLOOD COUNT 4.73 10^6/uL (4.00-5.40)
[2019-08-30] MEDS ORDERED: MORPHINE 2 MG/ML 1ML VIAL (J2270) IV ONE (08:15)
[2019-08-30 08:20] LABS: ALBUMIN 3.4 GM/DL (3.2-5.2); ALT/SGPT 38 U/L (12-78); BILIRUBIN,DIRECT < 0.1 MG/DL (0.0-0.2); BILIRUBIN,TOTAL 0.3 MG/DL (0.2-1.0); BLOOD UREA NITROGEN 14 MG/DL (7-18); CALCIUM LEVEL 9.2 MG/DL (8.5-10.1); CARBON DIOXIDE LEVEL 27 MEQ/L (21-32); CHLORIDE LEVEL 108 MEQ/L (98-107); CREATININE FOR GFR 0.92 MG/DL (0.55-1.30); GLOMERULAR FILTRATION RATE > 60.0 (>60); GLUCOSE, FASTING 97 MG/DL (70-100); LIPASE 190 U/L (73-393); POTASSIUM SERUM 4.6 MEQ/L (3.5-5.1); SODIUM LEVEL 140 MEQ/L (136-145); TOTAL PROTEIN 7.9 GM/DL (6.4-8.2)
[2019-08-30] MEDS ORDERED: ISOVUE-370 76% 100ML VIAL (Q9967) As Ordered ONE (08:23)
[2019-08-30] MEDS ORDERED: MORPHINE 2 MG/ML 1ML VIAL (J2270) IV PRN (09:30)
[2019-08-30 09:55] VITALS: BP 133/77
--- NOTE | 2019-08-30 09:58 | REP ---
CT ABDOMEN AND PELVIS WITH IV CONTRAST: TECHNIQUE: Axial contrast enhanced images from the lung bases to the pubic symphysis using 100 mL Isovue 370 intravenous contrast material with multiplanar reformations. Visualized lung bases are clear. Liver demonstrates diffuse fatty infiltration. Gallbladder demonstrates a large stone in the region of the neck of the gallbladder. This measures about 2.5 cm in maximum diameter. Gallbladder wall appears somewhat thickened and edematous. Gallbladder is moderately distended. Findings may indicate cholecystis. Spleen, adrenals, pancreas, and kidneys appear unremarkable. There is no adenopathy. There is no free air or free fluid. There is no abdominal aortic aneurysm. No bowel wall thickening is seen. There is no evidence of appendicitis. No pelvic mass is seen. Urinary bladder is mildly distended and grossly unremarkable. IMPRESSION: Gallstone in the neck of the gallbladder 2.5 cm in maximum diameter. There is moderate gallbladder distension. Gallbladder wall appears thickened and edematous. Findings may indicate cholecystitis. Electronically Signed by Man Dueñas MD 08/30/2019 04:19 P
[2019-08-30] MEDS: PANTOPRAZOLE 40MG INJ (PROTONIX) (C9113) IV SCH ×2 (10:28→20:35)
[2019-08-30] MEDS: PIPERACILLIN/TAZOBACTAM SOD 3.375 GM in D5W MINI-BAG PLUS 50 ML IV SCH ×3 (10:29→20:35)
[2019-08-30] MEDS: D5W/LR 1,000 ML IV SCH ×2 (10:32→20:53)
[2019-08-30 14:30] VITALS: BP 99/55
[2019-08-30 18:00] VITALS: BP 139/79
[2019-08-30 20:00] VITALS: BP 122/79
[2019-08-30] MEDS: MORPHINE 2 MG/ML 1ML VIAL (J2270) IV PRN (20:35)
[2019-08-30] MEDS: ONDANSETRON 4MG/2ML VIAL (J2405) IV PRN (21:27)
[2019-08-30] MEDS: KETOROLAC 30 MG/ML VIAL (J1885) IV PRN (23:42)
[2019-08-31] VITALS: BP 126/78
[2019-08-31] MEDS: PIPERACILLIN/TAZOBACTAM SOD 3.375 GM in D5W MINI-BAG PLUS 50 ML IV SCH ×4 (04:51→22:04)
[2019-08-31 06:00] VITALS: BP 97/51
--- NOTE | 2019-08-31 06:49 | HPE ---
DATE OF ADMISSION: 08/30/2019 CHIEF COMPLAINT: Gallbladder attack. BRIEF HISTORY OF PRESENT ILLNESS:: The patient is a 28-year-old female that I saw a few weeks ago in the office and scheduled her for a laparoscopic cholecystectomy. She is actually scheduled for tomorrow and presents with a 12-hour history of abdominal pain in the right upper quadrant that has been persistent and problematic after eating some fatty foods yesterday. She had some mild nausea without vomiting. No diarrhea. No acholic stools. No bilirubinuria. Her white count was normal on admission with normal liver function tests (LFTs). However, she did have some right upper quadrant pain and tenderness. A CAT scan that was performed revealed some gallbladder wall thickening and edema consistent with cholecystitis. PAST MEDICAL HISTORY: Significant for history of morbid obesity, history of post traumatic stress disorder (PTSD), history of migraines, history of anxiety, history of depression, history of hidradenitis suppurativa, history of epilepsy, history of lymph node biopsy. MEDICATIONS: Include clindamycin topical, metformin and omeprazole. PHYSICAL EXAMINATION: Reveals a 28-year-old female who looks stated age. HEENT is unremarkable. Neck: Supple without adenopathy. Lungs: Clear to auscultation without crackles, wheezes or rhonchi. Heart is regular without murmur. Abdomen: Soft, nondistended, nontender except in the right upper quadrant with some deep palpation. She has a slight Hallman sign. IMPRESSION AND PLAN: The patient has evidence of cholecystitis. Will keep her nothing by mouth (n.p.o.), IV fluids, IV antibiotics, and plan on operative intervention tomorrow as previously scheduled. I have instructed her that she does have a higher risk of infection perioperatively as well as bleeding and other complications given more acute inflammation issues that are ongoing, but she understands and would like to proceed with operative intervention as planned tomorrow.
[2019-08-31 07:58] LABS: HEMATOCRIT 34.6 % (36.0-47.0); HEMOGLOBIN 11.6 g/dl (12.0-15.5); MEAN CORPUSCULAR HEMOGLOBIN 27.8 pg (27.0-33.0); MEAN CORPUSCULAR HGB CONC 33.5 g/dl (32.0-36.5); PLATELET COUNT, AUTOMATED 277 10^3/uL (150-450); RED BLOOD COUNT 4.17 10^6/uL (4.00-5.40)
[2019-08-31 08:17] LABS: ALBUMIN 2.9 GM/DL (3.2-5.2); ALT/SGPT 33 U/L (12-78); BILIRUBIN,TOTAL 0.4 MG/DL (0.2-1.0); BLOOD UREA NITROGEN 10 MG/DL (7-18); CALCIUM LEVEL 8.2 MG/DL (8.5-10.1); CARBON DIOXIDE LEVEL 28 MEQ/L (21-32); CHLORIDE LEVEL 109 MEQ/L (98-107); CREATININE FOR GFR 0.94 MG/DL (0.55-1.30); GLOMERULAR FILTRATION RATE > 60.0 (>60); GLUCOSE, FASTING 115 MG/DL (70-100); POTASSIUM SERUM 3.8 MEQ/L (3.5-5.1); SODIUM LEVEL 141 MEQ/L (136-145); TOTAL PROTEIN 6.5 GM/DL (6.4-8.2)
[2019-08-31] MEDS ORDERED: ROCURONIUM BROMIDE 50 MG/5 ML VIAL As Ordered ONE (08:39)
[2019-08-31] MEDS ORDERED: LIDOCAINE 2% INJ 100 MG/5 ML SDV (FOR ANES.) As Ordered ONE (08:39)
[2019-08-31] MEDS ORDERED: MIDAZOLAM INJ 2 MG/2 ML VIAL (J2250) As Ordered ONE ×2 (08:39→12:36)
[2019-08-31] MEDS ORDERED: fentaNYL 250 MCG/5 ML INJECTION (J3010) As Ordered ONE (08:39)
[2019-08-31] MEDS ORDERED: PROPOFOL 200 MG/20 ML VIAL As Ordered ONE (08:39)
[2019-08-31] MEDS: PANTOPRAZOLE 40MG INJ (PROTONIX) (C9113) IV SCH ×2 (08:55→22:04)
[2019-08-31] MEDS: D5W/LR 1,000 ML IV SCH ×4 (08:55→23:02)
[2019-08-31] MEDS ORDERED: BUPIVACAINE/EPIN 0.25% 30 ML VIAL As Ordered ONE (10:33)
[2019-08-31] MEDS ORDERED: ceFAZolin 1GM INJ (J0690 PER 500MG) As Ordered ONE (11:06)
[2019-08-31] MEDS ORDERED: ONDANSETRON 4MG/2ML VIAL (J2405) As Ordered ONE ×2 (11:27→12:25)
[2019-08-31] MEDS ORDERED: KETOROLAC 60 MG/2 ML VIAL (J1885) As Ordered ONE (11:28)
[2019-08-31] MEDS ORDERED: ACETAMINOPHEN 1000MG 100ML IV BTL (OFIRMEV) (J0131 PER 10MG) As Ordered ONE (11:28)
[2019-08-31] MEDS ORDERED: dexameTHASONE 4 MG/ML 1ML VIAL (J1100) As Ordered ONE (11:28)
[2019-08-31] MEDS ORDERED: SUGAMMADEX SODIUM 500 MG/5 ML VIAL (BRIDION) As Ordered ONE (11:46)
[2019-08-31] MEDS ORDERED: NORCO, ANEXSIA 5/325MG TABLET (HYDROcodone/ACETAMINOPHEN) PO PRN ×2 (12:15)
[2019-08-31] MEDS ORDERED: fentaNYL 100 MCG/2 ML INJECTION (J3010) As Ordered ONE (12:26)
[2019-08-31] MEDS ORDERED: oxyCODONE 5MG TAB As Ordered ONE ×2 (12:26→13:01)
[2019-08-31] MEDS: oxyCODONE 5MG TAB PO PRN ×2 (12:30→13:00)
[2019-08-31] MEDS: fentaNYL 100 MCG/2 ML INJECTION (J3010) IV PRN ×4 (12:30→12:45)
[2019-08-31] MEDS ORDERED: LR 1,000 ML IV SCH (12:45)
[2019-08-31] MEDS ORDERED: MIDAZOLAM INJ 2 MG/2 ML VIAL (J2250) IV ONE (12:45)
[2019-08-31] MEDS ORDERED: ONDANSETRON 4MG/2ML VIAL (J2405) IV PRN ×2 (12:45→20:00)
[2019-08-31] MEDS ORDERED: PERCOCET 5MG/325MG TAB As Ordered ONE (12:57)
[2019-08-31] MEDS ORDERED: MORPHINE 10 MG/ML 1ML VIAL (J2270) As Ordered ONE (13:43)
[2019-08-31] MEDS: MORPHINE 2 MG/ML 1ML VIAL (J2270) IV PRN ×2 (13:45→13:50)
[2019-08-31] MEDS ORDERED: MORPHINE 2 MG/ML 1ML VIAL (J2270) IV PRN (14:00)
[2019-08-31 16:00] VITALS: BP 155/93
[2019-08-31] MEDS: KETOROLAC 30 MG/ML VIAL (J1885) IV PRN (16:58)
[2019-08-31 17:00] VITALS: BP 139/82
[2019-08-31] MEDS: ONDANSETRON 4MG/2ML VIAL (J2405) IV PRN (17:01)
[2019-08-31] MEDS ORDERED: PROMETHAZINE INJ 25 MG/ML VIAL (J2550) IV PRN (18:00)
[2019-08-31] MEDS ORDERED: PROMETHAZINE INJ 25 MG/ML VIAL (J2550) As Ordered ONE (18:01)
[2019-08-31 21:00] VITALS: BP 108/65
[2019-09-01] VITALS: BP 106/54
[2019-09-01] MEDS: PIPERACILLIN/TAZOBACTAM SOD 3.375 GM in D5W MINI-BAG PLUS 50 ML IV SCH (04:45)
[2019-09-01 05:00] VITALS: BP 107/57
[2019-09-01] MEDS: KETOROLAC 30 MG/ML VIAL (J1885) IV PRN (06:16)
[2019-09-01 08:07] LABS: HEMATOCRIT 36.1 % (36.0-47.0); HEMOGLOBIN 11.9 g/dl (12.0-15.5); MEAN CORPUSCULAR HEMOGLOBIN 27.3 pg (27.0-33.0); MEAN CORPUSCULAR VOLUME 82.8 fl (80.0-96.0); PLATELET COUNT, AUTOMATED 306 10^3/uL (150-450); RED BLOOD COUNT 4.36 10^6/uL (4.00-5.40); WHITE BLOOD COUNT 13.9 10^3/uL (4.0-10.0)
[2019-09-01 08:26] LABS: ALT/SGPT 44 U/L (12-78); BILIRUBIN,TOTAL 0.4 MG/DL (0.2-1.0); BLOOD UREA NITROGEN 9 MG/DL (7-18); CALCIUM LEVEL 8.7 MG/DL (8.5-10.1); CARBON DIOXIDE LEVEL 26 MEQ/L (21-32); CHLORIDE LEVEL 110 MEQ/L (98-107); CREATININE FOR GFR 0.89 MG/DL (0.55-1.30); GLOMERULAR FILTRATION RATE > 60.0 (>60); GLUCOSE, FASTING 133 MG/DL (70-100); POTASSIUM SERUM 3.7 MEQ/L (3.5-5.1); SODIUM LEVEL 141 MEQ/L (136-145); TOTAL PROTEIN 7.1 GM/DL (6.4-8.2)
[2019-09-01] MEDS: PANTOPRAZOLE 40MG INJ (PROTONIX) (C9113) IV SCH (08:28)
[2019-09-01 08:30] VITALS: BP 119/58
[2019-09-01] MEDS ORDERED: KETO10TAB PO (08:54)
[2019-09-01] MEDS ORDERED: HYDR-4571 PO (08:54)
== END 2019-09-01 09:40 | disposition home or self-care (01) | DRG 263 ==
LOC: M ED 06:27 → M ED INP 09:21 → M MS4PR 09:53 → M PED 08-31 15:52
PROVIDERS: ADMIT Surgery; ATTEND Surgery
PROC: 0FT44ZZ Resection of Gallbladder, Percutaneous Endoscopic Approach (ICD-10-PCS; principal; 2019-08-31 10:20)
DX: K81.9 Cholecystitis, unspecified (principal); Z68.42 Body mass index [BMI] 45.0-49.9, adult; E66.01 Morbid (severe) obesity due to excess calories; F43.10 Post-traumatic stress disorder, unspecified; G43.909 Migraine, unspecified, not intractable, without status migrainosus; F41.9 Anxiety disorder, unspecified; F32.9 Major depressive disorder, single episode, unspecified